=== PATIENT | female | born 1990 ===

== ENCOUNTER 2022-04-22 12:50 | Day surgery (SDC) | payer OTHER ==
[~2022-04-22] VITALS: Ht 177.8 cm; Wt 64.3 kg
[2022-04-22] MEDS ORDERED: PRENATAL TABLET PO (13:20)
[2022-04-22] MEDS ORDERED: PROTONIX20 MG PO (13:20)
[2022-04-22] MEDS ORDERED: REGLAN 5MG T5 MG/TAB PO (13:21)
[2022-04-22] MEDS ORDERED: VITAMIN B-625 MG PO ×2 (13:22)
[2022-04-22] MEDS ORDERED: UNISOM25 MG PO (13:23)
[2022-04-22] MEDS ORDERED: ZOFRAN 4MG T4 MG/TAB PO (13:23)
[2022-04-22 13:25] VITALS: BP 122/75; PULSE 106; TEMP 97.8
--- NOTE | 2022-04-22 13:40 | NUR ---
OB was in the room. DR montoya.
--- NOTE | 2022-04-22 14:21 | NUR ---
Procedure cancelled per due to staffing availability for [facility]. PT re-scheduled for 04/24/2022 @ 11 AM arrival. PT provided with appointment card. IV discontinued. Catheter tip intact. Pressure bandage applied. NO redness or swelling noted. PT dressed herself and was dismissed from [facility] via ambulation with to PT entrence. PT provided with work-release note, and two sodas. Questions answered. PT has personal belongings.
== END 2022-04-22 14:25 | disposition home or self-care (01) ==
LOC: SDCO 12:50
DX: O21.9 Vomiting of pregnancy, unspecified (principal); O99.012 Anemia complicating pregnancy, second trimester; D50.9 Iron deficiency anemia, unspecified; O26.892 Other specified pregnancy related conditions, second trimester; R11.2 Nausea with vomiting, unspecified; R10.13 Epigastric pain; O30.002 Twin pregnancy, unspecified number of placenta and unspecified number of amniotic sacs, second trimester; Z3A.15 15 weeks gestation of pregnancy; Z53.9 Procedure and treatment not carried out, unspecified reason; Z28.310 Unvaccinated for COVID-19; Z28.9 Immunization not carried out for unspecified reason
CPT/HCPCS: J7030

== ENCOUNTER 2022-04-24 10:54 | Day surgery (SDC) | payer OTHER ==
[~2022-04-24] VITALS: Ht 177.8 cm; Wt 64.1 kg
[~2022-04-24 10:54] MED LIST: PRENATAL TABLET PO; PROTONIX20 MG PO; REGLAN 5MG T5 MG/TAB PO; UNISOM25 MG PO; VITAMIN B-625 MG PO; ZOFRAN 4MG T4 MG/TAB PO
[2022-04-24] MEDS ORDERED: REGLAN 10MG10 MG/TAB PO (11:40)
[2022-04-24 11:41] VITALS: BP 122/73; PULSE 86; TEMP 98.8
[2022-04-24 13:25] VITALS: BP 113/71; PULSE 86; TEMP 98.3
--- NOTE | 2022-04-24 13:25 | NUR ---
Pt has returned post procedure to bay 2, via cart. Pt is oriented. VSS-documented. Given water and juice per request. HOB of cart raised for pt comfort. Side rails up and call light placed in reach. Pts spouse returned to room also.
[2022-04-24 13:30] VITALS: BP 125/81; PULSE 90
--- NOTE | 2022-04-24 13:36 | NUR ---
Pt had follow-up sonogram of heart tones-RAMON [place] reported Baby A was 145bpm, Baby B was 149bpm.
[2022-04-24 13:45] VITALS: BP 122/71; PULSE 94
[2022-04-24 14:00] VITALS: BP 123/70; PULSE 90
--- NOTE | 2022-04-24 14:20 | NUR ---
Pts VS remain stable-see flowsheet. Tolerated oral intake. IV removed with pressure dressing applied. Discharge teaching completed, pt and pts spouse verbalized understanding. After pt dressing, taken via wheelchair to private vehicle for dc home with spouse driving.
== END 2022-04-24 14:20 | disposition home or self-care (01) ==
LOC: SDCO 10:54
DX: O99.612 Diseases of the digestive system complicating pregnancy, second trimester (principal); K29.70 Gastritis, unspecified, without bleeding; O99.012 Anemia complicating pregnancy, second trimester; D50.9 Iron deficiency anemia, unspecified; O30.002 Twin pregnancy, unspecified number of placenta and unspecified number of amniotic sacs, second trimester; Z3A.15 15 weeks gestation of pregnancy; Z28.310 Unvaccinated for COVID-19; Z28.9 Immunization not carried out for unspecified reason
CPT/HCPCS: J2704; J7030